=== PATIENT | female | born 1960 | race Caucasian/White ===

== ENCOUNTER → 2016-08-20 | Outpatient (CLI) | payer OTHER ==
[~2016-08-20] MED LIST: AMLO5TAB PO; FELDENE 20MG. C20 MG PO; HYDROCODONE BIT1 T39 PO; HYDROCODONE-APA1 TA2 PO; HYDROCODONE/ACE1 TA5 PO; HYDROXYCHLOROQ200 MG PO; LASIX 40MG. TAB40 MG PO; LORTAB 7.5/3251 TAB PO; OMEPRAZOLE MAGN20 MG PO; PERCOCET 10 MG1 EACH PO; PREDNISONE 1MG.1 MG PO; SULFASALAZINE500 MG PO; TRAZADONE HYDR100 MG PO; VITAMIN B12100 MC1 PO
[2016-08-20 15:04] LABS: AMPHETAMINES/METAMPHETAMINES NEGATIVE ng/mL (<1000)
[2016-08-26 05:36] LABS: Codeine Negative (Cutoff=100); Hydrocodone Positive (.); Hydromorphone Positive (.); Morphine Negative (Cutoff=100); Opiates Positive (.)
== END ==
LOC: LAB 14:42
PROVIDERS: Anesthesiology
DX: Z79.899 Other long term (current) drug therapy (principal)